=== PATIENT | male | born 1975 | race Caucasian/White ===

== ENCOUNTER 2018-12-09 23:15 | Emergency (ER) | payer BC ==
[~2018-12-09] VITALS: Ht 175.3 cm; Wt 76.7 kg
[2018-12-09 23:24] VITALS: Ht 175.3 cm; Wt 76.7 kg
[2018-12-10 00:48] VITALS: BP 129/76
== END 2018-12-10 00:48 | disposition home or self-care (01) ==
LOC: ED 23:15
DX: L30.9 Dermatitis, unspecified (principal)
CPT/HCPCS: J7512